=== PATIENT | male | born 1960 | race Caucasian/White ===

== ENCOUNTER 2024-05-16 13:18 | Inpatient (IN) | payer BC, OTHER ==
[~2024-05-16] VITALS: Ht 169.9 cm; Wt 75.7 kg
[2024-05-16 13:45] LABS: BASOPHILS % (AUTO) 0.4 % (0.0-2.0); DIFFERENTIAL COMMENT 0; EOSINOPHILS % (AUTO) 0.1 % (0.0-7.0); HEMATOCRIT 48.1 % (36.7-47.1); HEMOGLOBIN 16.2 g/dL (12.5-16.3); LYMPHOCYTES # (AUTO) 0.8 K/uL (0.8-4.8); LYMPHOCYTES % (AUTO) 8.1 % (20.5-51.5); MEAN CORPUSCULAR HEMOGLOBIN 32.8 uug (23.8-33.4); MEAN CORPUSCULAR HGB CONC 34 g/dL (32.5-36.3); MEAN CORPUSCULAR VOLUME 97.4 fL (73.0-96.2); MONOCYTES # (AUTO) 0.9 K/uL (0.1-1.30); MONOCYTES % (AUTO) 9.5 % (0.0-11.0); NEUTROPHILS # (AUTO) 7.9 K/uL (1.8-8.9); NEUTROPHILS % (AUTO) 81.9 % (38.5-71.5); PLATELET COUNT (AUTO) 194 K/uL (152-348); RED BLOOD CELL COUNT(AUTO) 4.93 MIL/uL (4.06-5.63); RED CELL DISTRIBUTION WIDTH 15.3 % (12.1-16.2); WHITE BLOOD COUNT (AUTO) 9.6 K/uL (3.6-10.2)
[2024-05-16 13:53] LABS: CALCIUM 9.1 mg/dL (8.5-10.1); CARBON DIOXIDE 27 mmol/L (21-32); CHLORIDE 99 mmol/L (98-107); CREATININE 0.6 mg/dL (0.6-1.3); GLUCOSE 118 mg/dL (74-106); POTASSIUM 4.2 mmol/L (3.5-5.1); SODIUM SERUM 138 mmol/L (136-145); UREA NITROGEN, BLOOD 8 mg/dL (7-18)
[2024-05-16] MEDS ORDERED: METOPROLOL TARTRATE 50 MG TABLET ONE (13:56)
[2024-05-16] MEDS ORDERED: METOPROLOL TARTRATE 5 MG/5 ML VIAL IVP ONE (13:56)
[2024-05-16] MEDS ORDERED: ONDANSETRON 4 MG/2 ML VIAL ONE (13:56)
[2024-05-16] MEDS ORDERED: MAGNESIUM SULFATE/D5W 200 ML ONE (13:56)
[2024-05-16] MEDS ORDERED: ASPIRIN 81 MG TAB.CHEW ONE (13:56)
[2024-05-16] MEDS ORDERED: HYDROMORPHONE 1 MG/1 ML DISP.SYRIN ONE (13:57)
[2024-05-16] MEDS: IV NORMAL SALINE 500 ML BAG IV ONE (14:05)
[2024-05-16 14:06] LABS: NT-PRO BNP 138 pg/mL (0-125)
[2024-05-16] MEDS: ONDANSETRON 4 MG/2 ML VIAL IV ONE (14:06)
[2024-05-16] MEDS: MAGNESIUM SULFATE 2 GM in IV DEXTROSE 5% 100 ML IV ONE (14:08)
[2024-05-16] MEDS: HYDROMORPHONE 1 MG/1 ML DISP.SYRIN IV ONE ×2 (14:09→14:30)
[2024-05-16] MEDS: ASPIRIN 81 MG TAB.CHEW PO ONE (14:12)
[2024-05-16] MEDS: METOPROLOL TARTRATE 5 MG/5 ML VIAL IVP ONE (14:12)
[2024-05-16] MEDS ORDERED: NITROGLYCERIN OINT 1 GM PACKET TP ONE (14:18)
[2024-05-16] MEDS: NITROGLYCERIN OINT 1 GM PACKET TP ONE (14:21)
[2024-05-16] MEDS: METOPROLOL TARTRATE 50 MG TABLET PO ONE (14:21)
[2024-05-16] MEDS ORDERED: ASCO500C18 PO (14:38)
[2024-05-16] MEDS ORDERED: DORZ10DR19 OP (14:38)
[2024-05-16] MEDS ORDERED: RIVA20TA PO (14:38)
[2024-05-16] MEDS ORDERED: ALPR0.255 PO (14:38)
[2024-05-16] MEDS ORDERED: LOSA50TA39 PO (14:38)
[2024-05-16] MEDS ORDERED: LORA0.5T48 PO (14:38)
[2024-05-16] MEDS ORDERED: ROSU20TA32 PO (14:38)
[2024-05-16] MEDS ORDERED: DORZOLAMIDE OP SCH (18:00)
[2024-05-16] MEDS ORDERED: LORAZEPAM 0.5 MG TABLET PO PRN (18:00)
[2024-05-16] MEDS ORDERED: TIMOLOL OP SCH (18:00)
[2024-05-16] MEDS ORDERED: [UNRECOGNIZED DRUG - OTHER] OP SCH (18:00)
[2024-05-16] MEDS ORDERED: ALPRAZOLAM 0.25 MG TABLET PO PRN (18:00)
[2024-05-16 18:26] LABS: ALANINE AMINOTRANSFERASE < 6 U/L (16-63); ALBUMIN 3.7 g/dL (3.4-5.0); ALKALINE PHOSPHATASE 96 U/L (50-136); ASPARTATE AMINOTRANSFERASE 12 U/L (15-37); BILIRUBIN,DIRECT 0.2 mg/dL (0.0-0.2); BILIRUBIN,TOTAL 0.7 mg/dL (0.2-1.0); LIPASE 24 U/L (16-77); TOTAL PROTEIN, SERUM 7.2 g/dL (6.4-8.2)
[2024-05-16 18:50] VITALS: BP 139/89; TEMP 98.6
[2024-05-16] MEDS: LOSARTAN POTASSIUM 50 MG TABLET PO SCH (19:00)
[2024-05-16] MEDS: RIVAROXABAN 10 MG TABLET PO SCH (19:02)
[2024-05-16] MEDS: DORZOLAMIDE/TIMOLOL OPHT DROP 10 ML BOTTLE OP SCH (19:03)
[2024-05-16] MEDS ORDERED: hydrALAZINE HCL 25 MG TABLET PO PRN (19:15)
[2024-05-16] MEDS ORDERED: HYDROCODONE/APAP 5-325MG TABLET PO PRN (19:15)
[2024-05-16] MEDS ORDERED: ONDANSETRON 4 MG/2 ML VIAL IV PRN (19:15)
[2024-05-16] MEDS ORDERED: ACETAMINOPHEN 325 MG TABLET PO PRN (19:15)
[2024-05-16 20:00] VITALS: BP 124/88; TEMP 98.5
[2024-05-16] MEDS: ATORVASTATIN 20 MG TABLET PO SCH (20:53)
[2024-05-16] MEDS: ZOLPIDEM 5 MG TABLET PO PRN (22:07)
[2024-05-16 23:41] VITALS: BP 109/78; TEMP 98.2
[2024-05-17 05:00] VITALS: BP 149/63; TEMP 98.5
[2024-05-17] MEDS: PANTOPRAZOLE SODIUM 40 MG TABLET.DR PO SCH (06:12)
[2024-05-17 07:12] LABS: BASOPHILS # (AUTO) 0.1 K/UL (0.0-0.2); EOSINOPHILS # (AUTO) 0.3 K/uL (0.0-0.7); EOSINOPHILS % (AUTO) 5.1 % (0.0-7.0); HEMATOCRIT 42.5 % (36.7-47.1); HEMOGLOBIN 14.5 g/dL (12.5-16.3); LYMPHOCYTES # (AUTO) 1.5 K/uL (0.8-4.8); MEAN CORPUSCULAR HEMOGLOBIN 33.6 uug (23.8-33.4); MEAN CORPUSCULAR HGB CONC 34 g/dL (32.5-36.3); MEAN CORPUSCULAR VOLUME 98.4 fL (73.0-96.2); MONOCYTES % (AUTO) 17.1 % (0.0-11.0); NEUTROPHILS # (AUTO) 2.9 K/uL (1.8-8.9); NEUTROPHILS % (AUTO) 50.8 % (38.5-71.5); PLATELET COUNT (AUTO) 160 K/uL (152-348); RED BLOOD CELL COUNT(AUTO) 4.32 MIL/uL (4.06-5.63); RED CELL DISTRIBUTION WIDTH 15.1 % (12.1-16.2); WHITE BLOOD COUNT (AUTO) 5.7 K/uL (3.6-10.2)
[2024-05-17 07:15] LABS: DIFFERENTIAL COMMENT 1
[2024-05-17 07:21] LABS: ALBUMIN 3.3 g/dL (3.4-5.0); CALCIUM 8.5 mg/dL (8.5-10.1); CREATININE 0.7 mg/dL (0.6-1.3); MAGNESIUM 2.4 mg/dL (1.8-2.4); PHOSPHOROUS 3.8 mg/dL (2.5-4.9); THYROID STIMULATING HORMONE 2.252 mIU/mL (0.358-3.740); TOTAL PROTEIN, SERUM 6.6 g/dL (6.4-8.2)
[2024-05-17 07:22] LABS: POTASSIUM 4.4 mmol/L (3.5-5.1)
[2024-05-17 07:35] VITALS: BP 154/85; TEMP 98.5; O2SAT 97
[2024-05-17] MEDS ORDERED: Medication Not On Formulary EA (Ascorbic Acid (Vitamin C) 500 MG) PO SCH (09:00)
[2024-05-17] MEDS: ASCORBIC ACID 500 MG TABLET PO SCH (09:30)
[2024-05-17] MEDS: AMLODIPINE 5 MG TABLET PO SCH (09:30)
[2024-05-17] MEDS: ASPIRIN 81 MG TAB.CHEW PO SCH (09:30)
[2024-05-17] MEDS ORDERED: SERT-440 PO (10:43)
[2024-05-17] MEDS ORDERED: ATEN25TA PO (10:43)
[2024-05-17 11:36] VITALS: BP 145/96; TEMP 98.4; O2SAT 96
[2024-05-17] MEDS: SERTRALINE HCL 100 MG TABLET PO SCH (13:00)
[2024-05-17] MEDS: ATENOLOL 25 MG TABLET PO SCH (13:00)
[2024-05-17 15:10] LABS: BAND % (MANUAL) 3 % (0-10); NEUTROPHILS % (MANUAL) 47 % (42-75)
[2024-05-17 15:11] LABS: BASOPHILS % (MANUAL) 1 % (0-2); EOSINOPHILS % (MANUAL) 5 % (0-8); LYMPHOCYTES % (MANUAL) 23 % (20-40); MONOCYTES % (MANUAL) 16 % (2-10)
[2024-05-17 15:12] LABS: PLATELET ESTIMATE ADEQUATE
[2024-05-17 15:57] VITALS: BP 126/88; TEMP 98.1; O2SAT 97
== END 2024-05-17 17:45 | disposition home or self-care (01) | DRG 303 ==
LOC: ER 13:18 → TELE3 18:08
PROVIDERS: ADMIT Internal Medicine; ATTEND Internal Medicine
DX: I25.10 Atherosclerotic heart disease of native coronary artery without angina pectoris (principal); I16.9 Hypertensive crisis, unspecified; I25.2 Old myocardial infarction; I11.9 Hypertensive heart disease without heart failure; Z86.718 Personal history of other venous thrombosis and embolism; Z79.01 Long term (current) use of anticoagulants; F17.210 Nicotine dependence, cigarettes, uncomplicated; H40.9 Unspecified glaucoma; E78.5 Hyperlipidemia, unspecified; R61 Generalized hyperhidrosis; F41.9 Anxiety disorder, unspecified; R00.0 Tachycardia, unspecified; Z86.69 Personal history of other diseases of the nervous system and sense organs
CPT/HCPCS: 36415; 70030-TC; 71045; 83690; 83735; 84100; 84443; 84484; 85025; 93307; A4606; A4663; G0378; J1170; J2405; J3475; J3490; J7040